=== PATIENT | female | born 1990 ===

== ENCOUNTER 2020-07-10 11:42 | Outpatient (CLI) | payer OTHER ==
[~2020-07-10 11:42] MED LIST: CODE1TAB37 PO; DOCUSATE SODIU100 MG PO; Mylicon 125MG PO
== END 2020-07-10 12:00 | disposition home or self-care (01) ==
LOC: NUCLEAR 11:42
DX: I49.1 Atrial premature depolarization (principal); I34.1 Nonrheumatic mitral (valve) prolapse